=== PATIENT | female | born 1965 | race African-American/Black ===

== ENCOUNTER 2021-08-02 07:29 | Day surgery (SDC) | payer OTHER ==
[~2021-08-02 07:29] MED LIST: 0.9%NACL 1000ML 1,000 ML IV ONE; ACET-2247 PO; ACET1TAB25 PO; AEC81 PO; ASCO500T10 PO; AZIT250T9 PO; BISA10SU11 RC; CALC500T13 PO; CHOL2000 PO; DIVA500T52 PO; DOCU-116 PO; FLUO20CA30 PO; FURO-151 PO; GABA600T10 PO; GUAI100S59 PO; HYDR-3421 PO; MAG-156 PO; METO25TA6 PO; MIRT7.5T11 PO; MULT-1367 PO; NITR0.4T50 SL; OMEP20TA25 PO; ONDA4TAB4 PO; POLY17PO4 PO; POTA-79 PO; SENN8.6T90 PO; TRAZ-187 PO; ZINC220T4 PO
[2021-08-02 08:30] VITALS: BP 103/74
[2021-08-02] MEDS ORDERED: PROPOFOL 10 MG/ML 20ML VIAL IV ONE (10:04)
[2021-08-02 10:17] VITALS: BP 98/66
[2021-08-02 10:22] VITALS: BP 95/69
[2021-08-02 10:27] VITALS: BP 105/75
[2021-08-02 10:32] VITALS: BP 105/78
== END 2021-08-02 11:15 | disposition home or self-care (01) ==
LOC: DAH 07:29 → ENDO 07:29
PROVIDERS: ATTEND Internal Medicine Gastroenterology
DX: R10.13 Epigastric pain (principal); K29.70 Gastritis, unspecified, without bleeding; K21.00 Gastro-esophageal reflux disease with esophagitis, without bleeding; I10 Essential (primary) hypertension; I25.10 Atherosclerotic heart disease of native coronary artery without angina pectoris; K21.9 Gastro-esophageal reflux disease without esophagitis; F43.10 Post-traumatic stress disorder, unspecified; F31.9 Bipolar disorder, unspecified; Z98.84 Bariatric surgery status; Z79.899 Other long term (current) drug therapy; Z20.822 Contact with and (suspected) exposure to COVID-19
CPT/HCPCS: 43239; 87635; 88305; 88342; A4215 ×2; A4221; A4222; A4223; A4606; A4620; A4663; C9803; J2704; J7030